=== PATIENT | female | born 1950 | race Caucasian/White ===

== ENCOUNTER → 2023-06-04 12:47 | Outpatient (REF) | payer MEDICARE, SELFPAY | LOC: DHCBS HW 12:47 | PROVIDERS: ATTENDING PHYSICIAN Internal Medicine Cardiovascular Disease; FAMILY PHYSICIAN Family Medicine | DX: I34.0 Nonrheumatic mitral (valve) insufficiency (principal) | CPT/HCPCS: 93306 ==

== ENCOUNTER 2023-10-05 05:55 | Day surgery (SDC) | payer MEDICARE, OTHER, SELFPAY ==
[2023-09-14 10:39] VITALS: BMI 23.1
[2023-10-05] VITALS (21 sets, daily range): BP systolic 96–147; BP diastolic 48–124; BMI 23.6
[2023-10-05] MEDS: TYLENOL 1000 MG PO (07:07)
--- NOTE | 2023-10-05 07:43 | ITS.CL.ABL ---
Apartment Coordinator - Ablation
Ablation
Procedure Report:
Primary Saddle Maker: Liliam De Oliveira MD
Procedure Date: 10/05/2023
Patient History:
Patient is a pleasant 72-year-old female with past medical history significant for nonrheumatic MR, hyperlipidemia, MVP, family history of ischemic heart disease, and symptomatic paroxysmal atrial fibrillation.
See H&P for complete details.
Indication:
Symptomatic paroxysmal atrial fibrillation
Arrhythmia Specific History:
Prior Medical Therapies for Rate and Rhythm Control:
X Beta-neela
[ ] Calcium channel-neela
[ ] Amiodarone
[ ] Dronederone
[ ] Sotalol
[ ] Flecainide
[ ] Dofetilide
[ ] Options limited by bradycardia
[ ] Options limited by comorbid renal disease
Prior Procedural Therapies for AF/AFL:
[ ] Cardioversion
[ ] Pulmonary Vein Isolation
[ ] Posterior Wall Isolation
[ ] Additional lines (Specify)
[ ] Surgical Linder-MAZE or PVI (Specify)
Procedure Performed:
X AF ablation procedure (76927) -- includes LA/CS pacing, trans-septal, 3D mapping, + ICE
[ ] +IV drug (56780)
[ ] +Other Arrhythmia (24519)
[ ] +Other AF Line/ablation (39350)
Risks and expected recovery has been explained in detail. Alternative options have been explored, and in a shared-decision making fashion we have decided that this was the most appropriate procedure.
Method
NPO status confirmed. Grounding pad applied. Defibrillator pads applied. Continuous surface ECG, pulse oximetry, and blood pressure were monitored. Procedure was performed under general anesthesia, with anesthesia services.
Both groins were clipped, prepped with Chloraprep, and draped in sterile fashion. Time out was called. Local anesthesia administered with bupivacaine. The right and left femoral veins were accessed for catheter placement, using ultrasound guidance,
micro-puncture needle/wire, and modified seldinger technique. 3 sheaths were placed. The following catheters were used:
[ ] Tacticath SE (D/F Curve) ablation catheter
X Viewflex 9Fr ICE catheter
X Inquiry decapolar 6Fr diagnostic catheter
[ ] CRD Hex 6Fr
[ ] Arctic Front Advance Cryoballoon ([ ]28mm[ ]23mm)
[ ] Achieve Advance mapping catheter ([ ]15mm[ ]20mm)
X FlexCath Contour 10 Fr with PulseSelect PFA Catheter
X Advisor HD Grid Mapping Catheter, SE
[ ] Acuson AcuNav 8 Fr ICE catheter
[ ]Other: [ ]
Intracardiac ultrasound (ICE) was carefully advanced into the right atrium to guide sheath placement over a J-wire, catheter placement, guide trans-septal puncture, identify potential complications, identify anatomic structures and ensure proper
contact between ablation catheter and tissue. There is a trace pericardial effusion located posterior/basal LV at start of procedure prior to transseptal and which remained unchanged throughout the procedure and at completion of procedure.
Heparin was given prior to trans-septal puncture. Heparin was given to achieve and maintain a target ACT of 300-400 seconds throughout the procedure.
Trans-septal access was performed under ICE guidance. The trans-septal puncture was performed with a SafeSept wire through a Brockenbrough needle assembly through the steerable sheath. The wire was visualized as it entered the LSPV and system
advanced under ICE guidance and fluoroscopy into the LA. The Brockenbrough needle assembly, SafeSept wire and sheath dilator were removed under negative pressure. LA pressure was measured and recorded.
ICE and 3D mapping was performed to identify relevant cardiac structures. A careful 3D map was created to assess for regions of low-voltage and abnormal electrogram signals using HD grid mapping catheter and PulseSelect catheter. Additional mapping
was performed as outlined below.
Prior to ablation, glycopyrrolate was provided. PulseSelect catheter was advanced over J-wire to the ostium of each vein. Pulmonary vein isolation was performed with ostial and antral lesions in a circumferential manner. Contact was visualized via
EAM, ICE, fluoroscopy, and EGM signals. Following completion of ablation lesions, a post-ablation voltage/activation map was performed in sinus rhythm. Entrance and exit block were confirmed for each vein.
Catheter and sheath were removed from the left atrium and post-ablation intracardiac echo evaluation was consistent with pre-ablation with no changes and no change to pericardial effusion and there is no left atrial thrombus or left ventricle
thrombus seen. Electrophysiology study was performed. Hemostasis was obtained with figure of 8 stitch for each groin and with manual pressure. Protamine was used for reversal.
Estimated Blood Loss
5-10 mL
Complications
None
Fluoroscopy: 3.2 minutes; 6.7 mGy; DAP 0.8
Baseline Intervals:
Rhythm: SR
SD: 122 ms
QRS: 79 ms
QT: 496 ms
Post-Procedure Intervals:
SD: 128 ms
QRS: 81 ms
QT: 384 ms
QTc: [ ] ms
AVWB: 300 ms
AVERP: 600/270 ms
Recommendations
- Bedrest with straight-leg precautions as ordered
- Admit with anticipate discharge home tomorrow after overnight observation
- Resume home medications as indicated
- Ok to resume anticoagulation tonight if patient and groin sites stable
- PPI daily for 30 days
- Plan for follow-up in office with Dr. De Oliveira
Pritesh Polanco DO
Clinical Cardiac Header Operator
cc: Liliam De Oliveira MD; Kirt Jenkins DO
[2023-10-05 08:55] LABS: ACT-LR - POC 319 Seconds (116-155)
[2023-10-05 09:26] LABS: ACT-LR - POC 380 Seconds (116-155)
[2023-10-05 09:51] LABS: ACT-LR - POC 155 Seconds (116-155)
[2023-10-05 09:54] LABS: ACT-LR - POC > 397 Seconds (116-155)
--- NOTE | 2023-10-05 14:16 | CM ---
Chart reviewed. Patient is independent of ADLS, lives alone in a apartment in a [facility], 4th floor, elevator access, 0 UZIEL, 0 DME. Plan is for the patient to return home. CM to follow
[2023-10-05] MEDS: ELIQUIS 5 MG PO (17:39)
[2023-10-05] MEDS: ANESTHETIC LOZENGE 1 LOZENGE PO (17:40)
--- NOTE | 2023-10-05 19:03 | PTCARENOTE ---
Pt received post PVI. Bilateral femoral venous sites with dry and intact dressings. Figure of eight sutures removed without problem. No sign of bleeding or hematoma. Pt OOB in her room. Pt c/o sore throat, given cepacol lozenges. Pt also reported
not emptying her bladder fully initially but this improved. Telemetry showed sinus rhythm at a rate of 49-80.
[2023-10-05] MEDS: TOPROL XL 25 MG PO (22:19)
[2023-10-06 00:48] VITALS: BP 107/60
[2023-10-06 03:25] LABS: Hematocrit 35.5 % (37.0-47.0); Hemoglobin 12.5 g/dL (12.0-16.0); Mean Corp Hgb Conc. 35.2 g/dL (33.0-37.0); Mean Corpuscular Volume 88.1 fL (81.0-99.0); Mean Platelet Volume 10.9 fL (7.4-10.4); Platelet Count 235 10^3/uL (130-400); Red Blood Cell Count 4.03 10^6/uL (4.20-5.40); White Blood Cell Count 10.5 10^3/uL (4.8-10.8)
[2023-10-06 03:41] LABS: Blood Urea Nitrogen 18 mg/dl (7-17); Calcium 9.2 mg/dl (8.4-10.2); Carbon Dioxide 22 mmol/L (22-30); Chloride 107 mmol/L (98-107); Estimated Creatinine Clearance 59 ml/min; Glucose 110 mg/dl (70-99); Magnesium 2.1 mg/dl (1.6-2.3); Potassium 4.5 mmol/L (3.5-5.1); Sodium 136 mmol/L (135-145); eGFR > 60.00
[2023-10-06 04:00] VITALS: BP 108/67
--- NOTE | 2023-10-06 08:10 | W.PN.CARDCBS ---
Today's Communication / Plan
-
Continue oral anticoagulation and beta-neela
Stable for DC from CV standpoint
Impression / Plan
-
Assessment:
Paroxysmal symptomatic atrial fibrillation
� Status post PFA PVI on 10/05/2023
� [id number]: 2 (age, gender). On Eliquis 5 mg twice daily for stroke risk reduction
� Rate controlled with metoprolol succinate 25 mg daily
Mitral valve regurgitation with mitral valve prolapse
Hyperlipidemia
Seasonal allergies
Recommendations:
� Vital signs and lab work stable, telemetry sinus bradycardia/sinus rhythm asymptomatic
� Continue oral anticoagulation uninterrupted for at least 3 months
� Continue beta-neela
� Follow-up with primary paint roller assembler, Dr. Liliam De Oliveira in office scheduled
� Stable for discharge from CV standpoint
Progress Note - Educational Technology Specialist
Subjective
Date of Service: October 06, 2023
Patient seen and examined's morning. No acute events overnight. Patient resting comfortably in bed. Patient denies any chest pain, shortness of breath, lightheadedness, dizziness, near-syncope, syncope, PND, orthopnea, edema, groin discomfort, or
weakness. Patient able to void without issue. No complaints at this time.
Objective
Labs:
10/06/23 03:04
10/06/23 03:04
Labs
Hgb 12.5 g/dL (12.0-16.0) 10/06/23 03:04
Hct 35.5 % (37.0-47.0) L 10/06/23 03:04
Plt Count 235 10^3/uL (130-400) 10/06/23 03:04
Sodium 136 mmol/L (135-145) 10/06/23 03:04
Potassium 4.5 mmol/L (3.5-5.1) 10/06/23 03:04
BUN 18 mg/dl (7-17) H 10/06/23 03:04
Creatinine 0.7 mg/dL (0.6-1.0) 10/06/23 03:04
Glucose 110 mg/dl (70-99) H 10/06/23 03:04
Vital Signs and I&O:
Vital Signs
Temp Pulse Resp BP Pulse Ox
98.6 F 52 18 108/67 98
10/06/23 04:03 10/06/23 06:00 10/06/23 04:03 10/06/23 04:00 10/06/23 04:03
Vital Signs
Temp Pulse Resp BP Pulse Ox
98.6 F 52 18 108/67 98
10/06/23 04:03 10/06/23 06:00 10/06/23 04:03 10/06/23 04:00 10/06/23 04:03
Intake & Output
10/04/23 10/05/23 10/06/23 10/07/23
06:59 06:59 06:59 06:59
Intake Total 2250 / 2250
Output Total 1700 / 1700
Balance 550 / 550
Physical Exam
Physical Exam
GENERAL: no acute distress
EYE: sclera anicteric
NECK: Supple, no JVD, no carotid bruit appreciated
ENT: normal nose, moist mucosal membranes
CARDIAC: Regular rate and rhythm, +S1/S2, no murmur, rubs, or gallops
CHEST/PULMONARY: Normal effort, clear breath sounds
ABDOMEN: Soft, without focal tenderness or distention
NEUROLOGICAL: Alert and oriented x3
SKIN: Warm and dry, no rash; bilateral groin sites clean/dry/intact, Steri-Strips in place at left groin site; both sides soft, nontender, no evidence of swelling or hematoma
PSYCH: Normal and appropriate interaction.
[2023-10-06 08:43] VITALS: BP 101/86
[2023-10-06] MEDS: PROTONIX 40 MG PO (08:54)
[2023-10-06] MEDS: CRESTOR 5 MG PO (08:55)
[2023-10-06] MEDS: ELIQUIS 5 MG PO (08:55)
--- NOTE | 2023-10-06 12:38 | PTCARENOTE ---
Pt seen by . Pt voiding without difficulty. Telemetry and IV device removed. Discharge instructions reviewed with pt regarding activity and driving restrictions, wound care, medications and their actions and possible side effects, reporting
cares and concerns and follow up appt's. Very good understanding verbalized. Pt escorted out via wheelchair and discharged to home.
--- NOTE | 2023-10-08 07:23 | W.DS.TRANS ---
DC Summary - Director Of People
-
Discharge Instructions:
Sleep Apnea Risk Low
Discharge Diagnosis/Procedures AFib, s/p ablation
Diet Low Cholesterol
Driving Restrictions No driving for 24 hours
Instructions:
Stand-Alone Forms: DC Instructions- Cath/EP Lab
Changes to Home Medications: Yes
Discharge Medications:
DC Medications w/original date entered in [facility]
cholecalciferol (vitamin D3) 25 mcg (1,000 unit) tablet 1,000 unit PO DAILY 12/06/20
loratadine 10 mg tablet 10 mg PO DAILY 12/06/20
Melatonin Ashwaganda 1 gummy PO HSPRN PRN sleep 09/11/23
Metamucil 2 gummy PO PRN PRN constipation 09/11/23
apixaban 5 mg tablet (Eliquis) 5 mg PO BID 09/11/23
diphenhydramine HCl 50 mg/30 mL oral liquid (ZzzQuil) 50 mg PO HS PRN sleep 09/11/23
docusate sodium 100 mg capsule (Colace) 100 mg PO PRN PRN constipation 09/11/23
fexofenadine 180 mg tablet 180 mg PO PRN PRN allergies 09/11/23
fluticasone propionate 50 mcg/actuation nasal spray,suspension 1 spray intranasal PRN PRN nasal congestion 09/11/23
metoprolol succinate 25 mg tablet,extended release 24 hr (Toprol XL) 25 mg PO HS 09/11/23
rosuvastatin 5 mg tablet 5 mg PO DAILY 09/11/23
pantoprazole 40 mg tablet,delayed release 40 mg PO DAILY #30 tabs 10/05/23
Home Medication Changes
NEW: protonix
Pending Results: No
== END 2023-10-06 12:34 | disposition home or self-care (01) ==
LOC: CATH 05:55
PROVIDERS: Nurse Practitioner; ATTENDING PHYSICIAN Internal Medicine Cardiovascular Disease; FAMILY PHYSICIAN Family Medicine
DX: I48.0 Paroxysmal atrial fibrillation (principal); I34.0 Nonrheumatic mitral (valve) insufficiency; I34.1 Nonrheumatic mitral (valve) prolapse; E78.5 Hyperlipidemia, unspecified; Z79.01 Long term (current) use of anticoagulants; Z82.49 Family history of ischemic heart disease and other diseases of the circulatory system
CPT/HCPCS: C1732; C1894; C1733; C1769; C1766; C1759; 76937; 80048; 83735; 85027; 85347; 86900; 86901; 93005; 93656

== ENCOUNTER → 2023-11-16 14:45 | Outpatient (REF) | payer MEDICARE, OTHER, SELFPAY | LOC: HWRCS 14:45 | PROVIDERS: ATTENDING PHYSICIAN Internal Medicine Cardiovascular Disease; FAMILY PHYSICIAN Family Medicine | DX: I34.0 Nonrheumatic mitral (valve) insufficiency (principal); I48.0 Paroxysmal atrial fibrillation; I51.7 Cardiomegaly; I31.1 Chronic constrictive pericarditis | CPT/HCPCS: 93306 ==

== ENCOUNTER → 2023-11-19 08:39 | Outpatient (REF) | payer MEDICARE, OTHER, SELFPAY | LOC: DHCBC/DCA 08:39 | PROVIDERS: ATTENDING PHYSICIAN Internal Medicine Cardiovascular Disease; FAMILY PHYSICIAN Family Medicine | DX: I48.0 Paroxysmal atrial fibrillation (principal); I34.0 Nonrheumatic mitral (valve) insufficiency; I51.7 Cardiomegaly; I34.1 Nonrheumatic mitral (valve) prolapse | CPT/HCPCS: 78452; 93017; A9500 ==

== ENCOUNTER → 2024-01-09 09:28 | Outpatient (REF) | payer MEDICARE, OTHER, SELFPAY | LOC: RAD 09:28 | PROVIDERS: ATTENDING PHYSICIAN Internal Medicine Cardiovascular Disease; FAMILY PHYSICIAN Family Medicine | DX: R55 Syncope and collapse (principal); K55.1 Chronic vascular disorders of intestine | CPT/HCPCS: 93880 ==